=== PATIENT | female | born 1990 | race Caucasian/White ===

== ENCOUNTER 2017-12-11 09:04 | Emergency (ER) | payer MEDICAID ==
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
== END 2017-12-11 10:45 | disposition home or self-care (01) ==
LOC: ER 09:04
DX: O9A.213 Injury, poisoning and certain other consequences of external causes complicating pregnancy, third trimester (principal); S80.01XA Contusion of right knee, initial encounter; R10.84 Generalized abdominal pain; V89.2XXA Person injured in unspecified motor-vehicle accident, traffic, initial encounter; Y93.89 Activity, other specified; Y92.410 Unspecified street and highway as the place of occurrence of the external cause; Y99.8 Other external cause status
CPT/HCPCS: 76700-TC; 76815-TC; Z7502